=== PATIENT | male | born 1990 | race Caucasian/White ===

== ENCOUNTER 2020-09-15 14:23 | Outpatient (REF) | payer BC, SELFPAY ==
[2020-09-15 16:59] LABS: Alanine Aminotransferase 57 U/L (0-40); Albumin Level 4.8 g/dL (3.5-5.0); Alkaline Phosphatase 56 U/L (39-117); Anion Gap 16 (12-20); Aspartate Amino Transferase 39 U/L (5-37); Bilirubin Total 0.8 mg/dL (0.0-1.0); Blood Urea Nitrogen 13 mg/dL (9-16); Calcium 9.5 mg/dL (8.4-10.2); Carbon Dioxide 24 mmol/L (22-29); Chloride 105 mmol/L (96-108); Cholesterol 252 mg/dL; Estimated Glomerular Filt Rate > 60; Glucose Fasting 67 mg/dL (60-99); HDL Cholesterol 56 mg/dL; LDL Cholesterol Calculated 175 mg/dl; Potassium 4.4 mmol/L (3.3-5.1); Sodium 141 mmol/L (135-145); Triglycerides 106 mg/dL
[2020-09-15 17:12] LABS: TSH reflex Free T4 0.72 uIU/mL (0.32-4.0)
== END 2020-09-15 14:24 | disposition home or self-care (01) ==
LOC: HO.HMGCLDS 14:23
PROVIDERS: PCP Nurse Practitioner Family; Visit Provider Nurse Practitioner Family
DX: Z00.00 Encounter for general adult medical examination without abnormal findings (principal)
CPT/HCPCS: 36415; 80053; 80061; 84443

== ENCOUNTER 2020-09-16 14:34 | Outpatient (REF) | payer BC, SELFPAY ==
[2020-09-19 08:23] LABS: HBc Num1 0.07 S/CO (0.00-0.79); Hepatitis B Core Antibody Nonreactive (Nonreactive); ~HepC Num1 0.09 S/CO (0.00-0.79); ~Hepatitis B Surface Antibody REACTIVE (Nonreactive); ~Hepatitis C Antibody Nonreactive (Nonreactive)
[2020-09-19 08:25] LABS: HBsAGNum1 0.19 S/CO (0.00-0.99); Hepatitis B Surface Antigen Negative (Negative)
[2020-09-21 08:10] LABS: Hepatitis A Antibody IgM 0.18 Index (0-0.79); ~Hepatitis A Antibody IgM Nonreactive (Nonreactive)
== END 2020-09-16 14:35 | disposition home or self-care (01) ==
LOC: HO.HMGCLDS 14:34
PROVIDERS: PCP Nurse Practitioner Family; Visit Provider Nurse Practitioner Family
DX: R74.8 Abnormal levels of other serum enzymes (principal)
CPT/HCPCS: 36415; 86704; 86706; 86709; 86803; 87340

== ENCOUNTER 2020-09-23 08:19 | Outpatient (REF) | payer BC, SELFPAY ==
--- NOTE | ~2020-09-23 | US_ITS ---
EXAMINATION: US ABDOMEN COMPLETE CLINICAL INFORMATION: Elevated liver enzymes. COMPARISON: None TECHNIQUE: Real-time imaging of the abdominal viscera. FINDINGS: PANCREAS: Normal. ABDOMINAL AORTA: The proximal, mid, and distal segments are normal in caliber. INFERIOR VENA CAVA: Visualized portions are normal. LIVER: Normal. The liver is normal in size. The liver contour is normal. Parenchymal echogenicity is normal. No focal hepatic lesion. There is no intrahepatic biliary duct dilatation seen. GALLBLADDER: Normal. The gallbladder is physiologically distended without evidence of stones, sludge, polyps, wall thickening or pericholecystic fluid. COMMON BILE DUCT: Normal in caliber measuring 0.3 cm in diameter. RIGHT KIDNEY: Normal. No hydronephrosis. No renal calculi or focal parenchymal lesions. The kidney measures 10.7 cm in maximum dimension. LEFT KIDNEY: Normal. No hydronephrosis. No renal calculi or focal parenchymal lesions. The kidney measures 11.2 cm in maximum dimension. SPLEEN: Normal. The spleen measures 10.5 cm in maximum dimension. FREE FLUID: None. US/US abdomen complete IMPRESSION: Unremarkable complete abdomen ultrasound.
== END 2020-09-23 08:20 | disposition home or self-care (01) ==
LOC: HO.HMGCX 08:19
PROVIDERS: Visit Provider Nurse Practitioner Family
DX: R74.8 Abnormal levels of other serum enzymes (principal)
CPT/HCPCS: 76700

== ENCOUNTER 2021-09-07 10:19 | Outpatient (REF) | payer BC, SELFPAY ==
[2021-09-07 12:01] LABS: Alanine Aminotransferase 19 U/L (0-40); Albumin Level 4.4 g/dL (3.5-5.0); Alkaline Phosphatase 48 U/L (39-117); Anion Gap 13 (12-20); Aspartate Amino Transferase 15 U/L (5-37); Bilirubin Total 0.7 mg/dL (0.0-1.0); Blood Urea Nitrogen 12 mg/dL (9-16); Carbon Dioxide 27 mmol/L (22-29); Chloride 105 mmol/L (96-108); Cholesterol 220 mg/dL; Estimated Glomerular Filt Rate > 60; Glucose Fasting 83 mg/dL (60-99); HDL Cholesterol 43 mg/dL; LDL Cholesterol Calculated 146 mg/dl; Potassium 4.2 mmol/L (3.3-5.1); Sodium 141 mmol/L (135-145); Total Protein 7.4 g/dL (6.5-8.0); Triglycerides 157 mg/dL
[2021-09-07 12:21] LABS: TSH reflex Free T4 0.96 uIU/mL (0.32-4.0)
[2021-09-07 14:14] LABS: Appearance Urine CLEAR; Color Urine YELLOW; Glucose Urine UA NEG (NEG); Leukocyte Esterase Urine NEG (NEG); Nitrite Urine NEG (NEG); PH 6.5 (5.0-8.0); Urine Blood NEG (NEG); Urine Ketones NEG (NEG); Urine Protein NEG (NEG-TRACE)
== END 2021-09-07 10:20 | disposition home or self-care (01) ==
LOC: HO.HMGCLDS 10:19
PROVIDERS: PCP Nurse Practitioner Family; Visit Provider Nurse Practitioner Family
DX: E78.5 Hyperlipidemia, unspecified (principal); F33.9 Major depressive disorder, recurrent, unspecified; F41.9 Anxiety disorder, unspecified
CPT/HCPCS: 36415; 80053; 80061; 81003; 84443

== ENCOUNTER 2021-11-30 12:40 | Outpatient (REF) | payer BC, SELFPAY ==
[2021-11-30 14:12] LABS: Cholesterol 225 mg/dL; HDL Cholesterol 51 mg/dL; LDL Cholesterol Calculated 147 mg/dl; Triglycerides 139 mg/dL
== END 2021-11-30 12:41 | disposition home or self-care (01) ==
LOC: HO.HMGCLDS 12:40
PROVIDERS: PCP Nurse Practitioner Family; Visit Provider Nurse Practitioner Family
DX: E78.5 Hyperlipidemia, unspecified (principal)
CPT/HCPCS: 36415; 80061

== ENCOUNTER 2022-02-16 12:52 | Outpatient (REF) | payer BC, SELFPAY ==
[2022-02-16 14:44] LABS: Alanine Aminotransferase 24 U/L (0-40); Albumin Level 4.5 g/dL (3.5-5.0); Alkaline Phosphatase 51 U/L (39-117); Anion Gap 14 (12-20); Aspartate Amino Transferase 20 U/L (5-37); Bilirubin Total 1.1 mg/dL (0.0-1.0); Blood Urea Nitrogen 9 mg/dL (9-16); Calcium 9.3 mg/dL (8.4-10.2); Carbon Dioxide 28 mmol/L (22-29); Chloride 105 mmol/L (96-108); Cholesterol 145 mg/dL; Estimated Glomerular Filt Rate > 60; Glucose Fasting 84 mg/dL (60-99); HDL Cholesterol 45 mg/dL; LDL Cholesterol Calculated 77 mg/dl; Potassium 4.3 mmol/L (3.3-5.1); Sodium 143 mmol/L (135-145); Total Protein 7.3 g/dL (6.5-8.0); Triglycerides 115 mg/dL
== END 2022-02-16 12:53 | disposition home or self-care (01) ==
LOC: HO.HMGCLDS 12:52
PROVIDERS: PCP Nurse Practitioner Family; Visit Provider Nurse Practitioner Family
DX: E78.5 Hyperlipidemia, unspecified (principal)
CPT/HCPCS: 36415; 80053; 80061

== ENCOUNTER 2022-11-14 12:32 | Outpatient (REF) | payer BC, SELFPAY ==
[2022-11-14 13:54] LABS: Appearance Urine Clear; Color Urine Yellow; Glucose Urine UA Negative (Negative); Leukocyte Esterase Urine Negative (Negative); Nitrite Urine Negative (Negative); PH 5.5 (5.0-9.0); Specific Gravity - Urine 1.025 (1.005-1.025); Urine Blood Negative (Negative); Urine Ketones Trace mg/dL (Negative); Urine Protein Negative (Neg-Trace)
[2022-11-14 14:23] LABS: MANUAL DIFF FLAG NO
[2022-11-14 14:36] LABS: Basophils Absolute Auto 0.1 X10*3/uL (0.0-0.2); Basophils Percent Auto 1.6 % (0-2); Eosinophils Absolute Auto 0.5 X10*3/uL (0.0-0.4); Eosinophils Percent Auto 6.1 % (0-4); Hematocrit 47.8 % (42.0-52.0); Hemoglobin 15.6 g/dl (14.0-18.0); Imm Gran Abs Auto 0.03 X10*3/uL (0.00-0.03); Imm Gran Pct Auto 0.4 % (0.0-0.4); Lymphocytes Absolute Auto 1.9 X10*3/uL (1.2-4.9); Lymphocytes Percent Auto 25.6 % (20-40); Mean Corpuscular HGB Conc 32.6 g/dl (31.0-36.0); Mean Corpuscular Hemoglobin 30.3 pg (27.0-33.0); Mean Corpuscular Volume 92.8 fL (80.0-98.0); Mean Platelet Volume 9.7 fL (9.4-12.4); Monocytes Absolute Auto 0.7 X10*3/uL (0.1-1.2); Monocytes Percent Auto 8.9 % (2-11); Neutrophils Absolute Auto 4.3 x10*3/uL (2.0-8.3); Neutrophils Percent Auto 57.4 % (45-73); Platelet Count 321 X10*3/uL (160-400); Red Blood Count 5.15 X10*6/uL (4.60-5.80); Red Cell Distribution Width 12.8 % (11.0-16.0); White Blood Count 7.6 X10*3/uL (4.8-10.8)
[2022-11-14 15:01] LABS: Alanine Aminotransferase 22 U/L (0-40); Albumin Level 4.6 g/dL (3.5-5.0); Alkaline Phosphatase 62 U/L (39-117); Anion Gap 13 (12-20); Aspartate Amino Transferase 20 U/L (5-37); Bilirubin Total 1.1 mg/dL (0.0-1.0); Blood Urea Nitrogen 10 mg/dL (9-16); Calcium 9.8 mg/dL (8.4-10.2); Carbon Dioxide 28 mmol/L (22-29); Chloride 108 mmol/L (96-108); Cholesterol 214 mg/dL; Estimated Glomerular Filt Rate > 60; Glucose Fasting 95 mg/dL (60-99); HDL Cholesterol 47 mg/dL; LDL Cholesterol Calculated 124 mg/dl; Sodium 144 mmol/L (135-145); Total Protein 7.8 g/dL (6.5-8.0); Triglycerides 219 mg/dL
[2022-11-14 15:18] LABS: TSH reflex Free T4 1.03 uIU/mL (0.32-4.0)
== END 2022-11-14 12:33 | disposition home or self-care (01) ==
LOC: HO.HMGCLDS 12:32
PROVIDERS: PCP Nurse Practitioner Family; Visit Provider Nurse Practitioner Family
DX: Z00.00 Encounter for general adult medical examination without abnormal findings (principal); G47.00 Insomnia, unspecified; E78.5 Hyperlipidemia, unspecified; F41.9 Anxiety disorder, unspecified
CPT/HCPCS: 36415; 80053; 80061; 81003; 84443; 85025

== ENCOUNTER 2023-04-30 08:04 | Outpatient (AMB) | payer BC, SELFPAY ==
--- NOTE | 2023-04-30 07:21 | A.OFFPC_ITS ---
Intake Visit Reasons: FMLA paperwork Allergies Sulfa (Sulfonamide Antibiotics) Allergy (Unknown, Verified 11/14/22 11:27) rash sulfamethoxazole [From BACTRIM] Allergy (Unknown, Verified 11/14/22 11:27) RASH trimethoprim [From BACTRIM] Allergy (Unknown, Verified 11/14/22 11:27) RASH Tobacco use date assessed: 11/14/22 HPI FMLA paperwork HPI Details Pt was seen in the ER on 04/06 c/o abdominal pain, N/V, and poor intake. CT showed significantly dilated small bowel loops particularly of the jejunal loops seen with normal caliber of distal ileal loops with no transition zone identified. Pt was seen by general surgery who recommended a gastrografin challenge. This was performed with XR showing contrast material in the large colon ruling out obstruction. Pt was able to move his bowels during admission. He was advanced to a low fiber diet. Pt was d/c on 04/08 with recommendation for daily miralax. Pt reports doing well. He is eating well and having bowel movements. Denies fever, chills, abdominal pain, N/V/D, and constipation. [facility] Social History Housing: Apartment Alcohol intake: current Alcohol intake frequency: holidays/special occasions only Patient Tobacco Use Status: Never used Tobacco e-Cigarette/Vaping Use: Currently Using (sometimes ) Second Hand Smoke Exposure: Yes service: No Current occupational status: employed Current occupation: [employer] Current occupational exposures/hazards: No Cognitive needs: No Hearing needs: No Vision needs: No Questionnaire Thrive Questionnaire Date Thrive assessed: 08/31/21 JUSTIN-7 AMB Questionnaire JUSTIN-7 Date JUSTIN - 7 assessed: 08/31/21 Source: Developed by Drs. Isaías Alcala, Radha Bass, Shabbir Vega and colleagues, with an educational henrique from [employer]. Review of Systems Const Reports as per HPI Physical exam (Primary Care) Tobacco/Smoking Status: Tobacco use Status Tobacco use date assessed 11/14/22 04/30/23 07:22 Patient Tobacco Use Status Never used Tobacco 04/30/23 07:22 e-Cigarette/Vaping Use Currently Using (sometimes ) 04/30/23 07:22 Thrive Assessment: Date of Thrive Assessment Date Thrive assessed 08/31/21 04/30/23 07:22 Const General: cooperative Orientation/consciousness: patient oriented x3 Neuro General: patient oriented x3 Psych Appearance: grossly normal Mental Status: mental status grossly normal Speech and movement: Normal speech and movement present Affect: normal affect Attitude: cooperative Thought process: Normal thought process present Thought content: Normal thought content present Insight: Good insight present (Psych) Judgement: Good judgement present (Psych) Telehealth Telehealth Location of provider rendering services: practice address Location of patient: address on file Patient Identification confirmed using: Name, : Yes Telehealth method: video Patient verbally consented to treatment: Yes Patient verbally consented to billing insurance company: Yes Patient informed of any privacy concerns related to visit: Yes Minutes spent on Phone/Video with Pt.: 15 Assessment and Plan Assessment & Plan (1) Abdominal pain: Code(s): R10.9 - Unspecified abdominal pain Plan: pt doing well, labs ordered (2) Ileus: Code(s): K56.7 - Ileus, unspecified Plan The patient agreed to the use of a phlebotomist medical lab assistant for this encounter. Scribed for YUSUF Otoole by Kassandra Weber phlebotomist medical lab assistant, on 04/30/2023 at 07:20 EST. Orders: Orders Comprehensive Met. Panel Today R10.9 - Unspecified abdominal pain Complete Blood Count Auto Diff Today R10.9 - Unspecified abdominal pain Coding Level of Care Code Tele Est Pt Level 3 (31843) Diagnoses Abdominal pain R10.9 Ileus K56.7
== END 2023-04-30 12:47 | disposition home or self-care (01) ==
LOC: HO.HMGC 08:04
PROVIDERS: PCP Nurse Practitioner Family; Visit Provider Nurse Practitioner Family
DX: R10.9 Unspecified abdominal pain (principal); K56.7 Ileus, unspecified
CPT/HCPCS: 99213

== ENCOUNTER 2023-05-27 09:56 | Outpatient (AMB) | payer BC, SELFPAY ==
--- NOTE | 2023-05-27 10:07 | A.OFFPC_ITS ---
Vital Signs 05/27/23 10:09 Height 5 ft 9 in Weight 165 lb BMI 24.4 BP 102/60 Blood Pressure Location Lt brachial Position Sitting Pulse 54 Pulse Source Pulse Oximeter Intake Visit Reasons: 6 Month follow up Intake Note: Pt is here today for his 6mo. f/u Allergies Sulfa (Sulfonamide Antibiotics) Allergy (Unknown, Verified 05/27/23 10:44) rash sulfamethoxazole [From BACTRIM] Allergy (Unknown, Verified 05/27/23 10:44) RASH trimethoprim [From BACTRIM] Allergy (Unknown, Verified 05/27/23 10:44) RASH Medication List - Last Reconciled 05/27/23 by EMILY Hassan-MYRON albuterol sulfate 90 mcg/actuation 2 puffs inhalation Q6H PRN atorvastatin 10 mg PO BEDTIME 30 days tphywsppivs-piajknzik-qziduwbn 100-62.5-25 mcg (Trelegy Ellipta) 1 inh inhalation DAILY montelukast 10 mg PO DAILY trazodone 50 mg PO BEDTIME PRN Tobacco use date assessed: 05/27/23 Dental Screening Dental Screen Date: 05/27/23 Did you have a dental visit in the last 12 months?: Yes Did you have a dental problem in the last 6 months where you did not have access to dental care?: No Was dental information given to patient?: Patient has dentist HPI 6 Month follow up HPI Details Anxiety/depression: Pt is not currently taking medication for this and does not want to. He reports that his symptoms come and go. Refuses a therapist at this time, he will contact me if he changes his mind. Denies any SI and HI. Pt is having an eye procedure in the near future. Pt does not know the name of it and there are no notes on this. Pt is cleared for any same-day procedures. [facility] Social History Housing: Apartment Alcohol intake: current Alcohol intake frequency: holidays/special occasions only Patient Tobacco Use Status: Never used Tobacco e-Cigarette/Vaping Use: Former Use (sometimes ) Second Hand Smoke Exposure: Yes service: No Current occupational status: employed Current occupation: [employer] Current occupational exposures/hazards: No Cognitive needs: No Hearing needs: No Vision needs: No Questionnaire Thrive Questionnaire Date Thrive assessed: 05/27/23 I am a: Patient What is your living situation today?: I have a steady place to live Within the past 12 months, did the food you bought not last and you didn't have the money to get more?: Never true Within the past 12 months, did you worry whether your food would run out before you got money to buy more?: Never true Do you have trouble paying for medicines?: No Do you have trouble getting transportation to medical appointments?: No Do you have trouble paying your heating and electricity bill?: No Do you have trouble taking care of your child, family member or friend?: No Do you have trouble with day-to-day activities such as bathing, preparing meals, shopping, managing finances, etc.?: No Are you currently unemployed and looking for a job?: No Are you interested in more education?: No AUDIT C Alcohol Use Questionnaire (AUDIT-C) 1. How often do you have a drink containing alcohol?: Never Total Score: 0 JUSTIN-7 AMB Questionnaire JUSTIN-7 Date JUSTIN - 7 assessed: 08/31/21 Source: Developed by Drs. Isaías Alcala, Radha Bass, Shabbir Vega and colleagues, with an educational henrique from [employer]. Review of Systems Const Reports as per HPI Physical exam (Primary Care) Vital Signs: Last Vital Signs Pulse 54 05/27/23 10:09 BP 102/60 05/27/23 10:09 BMI result Body Mass Index 24.4 Tobacco/Smoking Status: Tobacco use Status Tobacco use date assessed 05/27/23 05/27/23 10:08 Patient Tobacco Use Status Never used Tobacco 05/27/23 10:08 e-Cigarette/Vaping Use Former Use (sometimes ) 05/27/23 10:14 Thrive Assessment: Date of Thrive Assessment Date Thrive assessed 05/27/23 05/27/23 10:16 Const General: cooperative Orientation/consciousness: patient oriented x3 Neck Neck: Yes no lymphadenopathy Resp Effort & Inspection: normal respiratory effort Auscultation: clear to auscultation bilaterally Cardio Rate: regular rate Rhythm: regular rhythm Heart sounds: S1 normal heart sound present and S2 normal heart sound present Neuro General: patient oriented x3 Psych Appearance: grossly normal Mental Status: mental status grossly normal Speech and movement: Normal speech and movement present Affect: normal affect Attitude: cooperative Thought process: Normal thought process present Thought content: Normal thought content present Insight: Good insight present (Psych) Judgement: Good judgement present (Psych) Assessment and Plan Assessment & Plan (1) Depression, major, recurrent: Code(s): F33.9 - Major depressive disorder, recurrent, unspecified (2) Anxiety: Code(s): F41.9 - Anxiety disorder, unspecified (3) Pre-op evaluation: Code(s): Z01.818 - Encounter for other preprocedural examination Plan The patient agreed to the use of a nurses medical assistants phlebotomists for this encounter. Scribed for YUSUF Otoole by Kassandra Weber nurses medical assistants phlebotomists, on 05/27/2023 at 10:30 EST. Coding Level of Care Code Est Pt Level 3 (89099) Diagnoses Depression, major, recurrent F33.9 Anxiety F41.9 Pre-op evaluation Z01.818
[2023-05-27 10:09] VITALS: BP 102/60; PULSE 54; BMI 24.4
== END 2023-05-27 15:01 | disposition home or self-care (01) ==
PROVIDERS: Visit Provider Nurse Practitioner Family
DX: F33.9 Major depressive disorder, recurrent, unspecified (principal); F41.9 Anxiety disorder, unspecified; Z01.818 Encounter for other preprocedural examination
CPT/HCPCS: 99213

== ENCOUNTER 2023-06-05 11:34 | Day surgery (SDC) | payer BC, SELFPAY ==
[2023-05-31 12:49] VITALS: BMI 24.4
[2023-05-31 12:56] VITALS: BMI 24.4
[2023-06-05] VITALS (7 sets, daily range): BP systolic 114–146; BP diastolic 48–74; PULSE 12–55; RESP 14–16; TEMP 36.3–37; O2SAT 100; BMI 24.4
[2023-06-05] MEDS: Lactated Ringers 1,000 ML 100 ML IVCONT (12:59)
--- NOTE | 2023-06-05 13:40 | P.CONAN_ITS ---
Documented by User: Sonia Herring NP 06/04/23 10:11 HPI - Anesthesia Eval Consult details Narrative: 33yo M for Bilateral Lateral Eye Muscle Recession [facility] Active Problems Active Problems: All Active Problems (Updated 05/31/23 @ 12:55 by Carissa Nolan RN) Pre-op evaluation (Acute) Ileus (Acute) Abdominal pain (Acute) Insomnia (Acute) Lesion of throat (Acute) Blurred vision, right eye (Acute) Depression, major, recurrent (Acute) Anxiety (Acute) Elevated liver enzymes (Acute) Dyslipidemia (Acute) Incomplete defecation (Acute) Chest discomfort (Acute) Hyperhidrosis (Acute) Physical exam (Acute) Past Medical History Medical History Asthma Anxiety Depression Elevated cholesterol Surgical History Surgical History Hx of abdominal surgery Social History Social History Housing: Apartment Are you a primary healthcare corporate account director to a significant other at home: No Do you presently have visiting nurse or other home services: No Alcohol intake: current Alcohol intake frequency: does not drink Patient Tobacco Use Status: Never used Tobacco e-Cigarette/Vaping Use: Former Use (sometimes ) Second Hand Smoke Exposure: Yes Use of substances other than those prescribed or required for medical reasons: Yes Substance Use Frequency: Occasionally Have you been hit, kicked, punched, or otherwise hurt by someone within the past year? If so, by whom?: No Are you DNR?: No Advance Directives: No Advance Directives Information Provided: Yes Advance Directives on File: No Recently lost weight without trying: No Eating poorly because of decreased appetite: No Nutrition Risks: No Nutritional Risk Poor oral hygiene: No service: No Current occupational status: employed Current occupation: [employer] Current occupational exposures/hazards: No Cognitive needs: No Hearing needs: No Vision needs: No Meds Allergies Allergy/AdvReac Type Severity Reaction Status Date / Time Sulfa (Sulfonamide Allergy Unknown rash Verified 05/27/23 10:44 Antibiotics) sulfamethoxazole Allergy Unknown RASH Verified 05/27/23 10:44 [From BACTRIM] trimethoprim [From BACTRIM] Allergy Unknown RASH Verified 05/27/23 10:44 Home Medications Medication Instructions Recorded Confirmed Last Taken Type albuterol sulfate 90 mcg/actuation 2 puff inhalation Q6H PRN Wheezing 09/14/20 05/31/23 Unknown History aerosol inhaler Exam Height,Weight and Vital Signs: Height 5 ft 9 in Weight 74.843 kg Assessment and Plan Assessment Anesthesia Assessment: Chart Reviewed Documented by User: Hoa Boston, 06/05/23 13:43 [facility] Past Medical History Medical History Asthma Anxiety Depression Elevated cholesterol Family History Family history of problems with anesthesia: No Surgical History Surgical History Hx of abdominal surgery History of Problems with Anesthesia: No Social History Social History Housing: Apartment Are you a primary healthcare corporate account director to a significant other at home: No Do you presently have visiting nurse or other home services: No Alcohol intake: current Alcohol intake frequency: does not drink Patient Tobacco Use Status: Never used Tobacco e-Cigarette/Vaping Use: Former Use (sometimes ) Second Hand Smoke Exposure: Yes Use of substances other than those prescribed or required for medical reasons: Yes Substance Use Frequency: Occasionally Have you been hit, kicked, punched, or otherwise hurt by someone within the past year? If so, by whom?: No Are you DNR?: No Advance Directives: No Advance Directives Information Provided: Yes Advance Directives on File: No Recently lost weight without trying: No Eating poorly because of decreased appetite: No Nutrition Risks: No Nutritional Risk Poor oral hygiene: No service: No Current occupational status: employed Current occupation: [employer] Current occupational exposures/hazards: No Cognitive needs: No Hearing needs: No Vision needs: No Meds Allergies Allergy/AdvReac Type Severity Reaction Status Date / Time Sulfa (Sulfonamide Allergy Unknown rash Verified 05/27/23 10:44 Antibiotics) sulfamethoxazole Allergy Unknown RASH Verified 05/27/23 10:44 [From BACTRIM] trimethoprim [From BACTRIM] Allergy Unknown RASH Verified 05/27/23 10:44 Home Medications Medication Instructions Recorded Confirmed Last Taken Type albuterol sulfate 90 mcg/actuation 2 puff inhalation Q6H PRN Wheezing 09/14/20 05/31/23 Unknown History aerosol inhaler Exam Exam Date and Time: June 05, 2023 1340 Height,Weight and Vital Signs: Height 5 ft 9 in Weight 74.843 kg Vital Signs Temperature 98.6 F 06/05/23 12:55 Pulse Rate 55 06/05/23 12:55 Respiratory Rate 16 06/05/23 12:55 Blood Pressure 135/74 06/05/23 12:55 Pulse Oximetry 100 06/05/23 12:55 Oxygen Delivery Method Room Air 06/05/23 12:55 Temperature 98.6 F 06/05/23 12:55 Pulse Rate 55 06/05/23 12:55 Respiratory Rate 16 06/05/23 12:55 Blood Pressure 135/74 06/05/23 12:55 Pulse Oximetry 100 06/05/23 12:55 Oxygen Delivery Method Room Air 06/05/23 12:55 Airway Mallampati Class: I TM Dist: >3cm Neck ROM: Full Loose/Missing/Broken Teeth: No Heart: S1S2 Lungs: CTAB Assessment and Plan Assessment Anesthesia Assessment: Anesthesia Plan Discussed and Chart Reviewed Final Anesthetic Review Family History of Problems with Anesthesia: No History of Problems with Anesthesia: No NPO: Yes ASA Class: II Final Preanesthetic Review: No Changes in Pt Med Stat, Meds/Allgs Chart Reviewed , Consent Obtained/Reviewed and Anes Risks/Benef Reviewed Patient Risk: Low Procedure Risk: Low Anesthetic Plan Anesthetic Plan: GA and Agree w/ Assess. and Plan Disposition: Standard PACU
--- NOTE | 2023-06-05 14:44 | P.OPHTHAL_ITS ---
Ophthalmology Operative Note Date of Service: 06/05/23 Narrative: Diagnosis esotropia. Procedure bilateral medial rectus recessions of [address] Damon. Anesthesia general. Complications none. The patient was brought to the operative room placed under general anesthesia. The eyes were prepped and draped in the usual sterile ophthalmic fashion. Lid specula was placed in the right eye and incisions made at bare sclera in the inferonasal fornix. The medial rectus muscle was hooked and secured with a double-armed Vicryl suture. The muscle was disinserted from the globe and reattached to a position 4 mm behind the original insertion using a hang back technique. Conj unctiva was closed with interrupted Vicryl sutures. An identical procedure was then performed on the left eye. The patient was then awoken from general anesthesia and discharged to postoperative recovery in good condition.
== END 2023-06-05 15:46 | disposition home or self-care (01) ==
PROVIDERS: PCP Nurse Practitioner Family; Visit Provider Ophthalmology
PROC: (CPT 67311; principal; 2023-06-05 13:40)
DX: H50.32 Intermittent alternating esotropia (principal); F33.9 Major depressive disorder, recurrent, unspecified; J45.909 Unspecified asthma, uncomplicated; E78.00 Pure hypercholesterolemia, unspecified; F41.8 Other specified anxiety disorders; Z79.51 Long term (current) use of inhaled steroids; Z79.899 Other long term (current) drug therapy; Z88.2 Allergy status to sulfonamides; Z88.1 Allergy status to other antibiotic agents; Z77.22 Contact with and (suspected) exposure to environmental tobacco smoke (acute) (chronic)
CPT/HCPCS: 67311; C1713; J0131; J1100; J1885; J2250; J2405; J2704; J3010

== ENCOUNTER 2023-11-21 11:07 | Outpatient (AMB) | payer BC, SELFPAY ==
--- NOTE | 2023-11-21 11:10 | MHC.PC.OV ---
Vital Signs 11/21/23 11:11 Height 5 ft 9 in Weight 168 lb BMI 24.8 BP 122/76 Blood Pressure Location Rt brachial Position Sitting Pulse 60 Pulse Source Pulse Oximeter Pulse Oximetry (%) 98 Intake Visit Reasons: Physical exam Intake Note: pt is here for physical exam Freight Broker Agent Required: No Allergies Sulfa (Sulfonamide Antibiotics) Allergy (Unknown, Verified 11/21/23 11:19) rash sulfamethoxazole [From BACTRIM] Allergy (Unknown, Verified 11/21/23 11:19) RASH trimethoprim [From BACTRIM] Allergy (Unknown, Verified 11/21/23 11:19) RASH Medication List - Last Reconciled 11/21/23 by EMILY Fox albuterol sulfate 90 mcg/actuation 2 puffs inhalation Q6H PRN [id number]-[id number]-[id number] 100-62.5-25 mcg (Trelegy Ellipta) 1 inh inhalation DAILY montelukast 10 mg PO DAILY trazodone 50 mg PO BEDTIME PRN Tobacco use date assessed: 11/21/23 Dental Screening Dental Screen Date: 11/21/23 Did you have a dental visit in the last 12 months?: Yes Did you have a dental problem in the last 6 months where you did not have access to dental care?: No Was dental information given to patient?: Patient has dentist HPI HPI Comments History of Present Illness Details Patient is a 33-year-old male in today for physical exam Patient is due for tetanus booster today, will offer. Patient will get at local pharmacy. He has a past medical history significant for: Anxiety-patient declines medication and therapy at this time. Dyslipidemia-patient discontinue atorvastatin. Will draw fasting labs today. Insomnia-controlled with trazodone 50 mg p.o. bedtime. Asthma-controlled with trilogy inhaler and albuterol inhaler. Patient utilizes albuterol 1-2 times per month. [facility] Medical History (Updated 11/21/23 @ 11:49 by EMILY Fox) Asthma Anxiety Depression Elevated cholesterol Surgical History Hx of abdominal surgery Social History Housing: Apartment Are you a primary day care supervisor to a significant other at home: No Do you presently have visiting nurse or other home services: No Alcohol intake: current Alcohol intake frequency: does not drink Patient Tobacco Use Status: Never used Tobacco e-Cigarette/Vaping Use: Former Use (sometimes ) Second Hand Smoke Exposure: Yes service: No Current occupational status: unemployed Current occupational exposures/hazards: No Cognitive needs: No Hearing needs: No Vision needs: No Questionnaire Thrive Questionnaire Date Thrive assessed: 05/27/23 I am a: Patient What is your living situation today?: I have a steady place to live Within the past 12 months, did the food you bought not last and you didn't have the money to get more?: Never true Within the past 12 months, did you worry whether your food would run out before you got money to buy more?: Never true Please select the resources that you would like help with: Utilities, Job search/training and Education THRIVE Score: 0 AUDIT C Alcohol Use Questionnaire (AUDIT-C) 1. How often do you have a drink containing alcohol?: 2-3 times a week 2. How many drinks containing alcohol do you have on a typical day when you are drinking?: 5 or 6 3. How often do you have six or more drinks on one occasion?: Monthly Total Score: 7 Score Reviewed/Action Taken: Yes JUSTIN-7 AMB Questionnaire JUSTIN-7 Date JUSTIN - 7 assessed: 08/31/21 Feeling nervous, anxious, or on edge: 1 = Several days Not being able to stop or control worryin = Several days Worrying too much about different things: 1 = Several days Trouble relaxin = Several days Being so restless that it is hard to sit still: 0 = Not at all Becoming easily annoyed or irritable: 2 = More than half the days Feeling afraid as if something awful might happen: 3 = Nearly every day Total JUSTIN-7 score (0-4 normal; 5-9 mild; 10-14 moderate; 15-21 severe): 9 Source: Developed by Drs. Isaías Alcala, Radha Bass, Shabbir Vega and colleagues, with an educational henrique from [employer] JUSTIN-7 Assessment Billing JUSTIN-7 Assessment Tool: JUSTIN-7 Assessment 76643 Review of Systems Const All systems reviewed & are unremarkable except as noted in HPI and below GI Reports constipation Physical exam (Primary Care) BMI result Body Mass Index 24.8 Tobacco/Smoking Status: Tobacco use Status Tobacco use date assessed 05/27/23 05/27/23 10:08 Patient Tobacco Use Status Never used Tobacco 06/05/23 15:00 e-Cigarette/Vaping Use Former Use 05/27/23 10:14 Thrive Assessment: Date of Thrive Assessment Date Thrive assessed 05/27/23 05/27/23 10:16 Const General: cooperative and no acute distress Orientation/consciousness: patient oriented x3 Limitations: no limitations HENMT Head: Yes normal to inspection, Yes normocephalic and Yes atraumatic Ears: TM's normal bilaterally General nose exam: Normal external nose present Mouth: Normal oral and palatal mucosa present Eyes Pupils: Equal, round and reactive pupils present EOM: EOMs intact bilaterally Direct Ophthalmoscopy: normal light reflex and no photophobia Neck Neck: Yes normal visual inspection, Yes full ROM and Yes no lymphadenopathy Thyroid: Thyroid normal Carotids: normal carotid upstroke Lymphatic: no lymphadenopathy noted Chest Chest palpation & inspection: normal inspection of the chest Resp Auscultation: clear to auscultation bilaterally Cardio Rate: regular rate Rhythm: regular rhythm Heart sounds: S1 normal heart sound present and S2 normal heart sound present Peripheral pulses: Peripheral pulses 2+ throughout GI Inspection: Yes normal to inspection Percussion: Yes normal to percussion Auscultation: normal bowel sounds Rectal Exam - Male: Yes deferred General: Yes no CVA tenderness Back/Spine/Pelvis Back: no CVA tenderness Cervical Spine: normal cervical lordosis and cervical ROM normal Thoracic/Lumbar Spine: paraspinal muscle tenderness Skin General skin exam: no rashes or lesions noted Neuro General: patient oriented x3 Cranial nerves: Yes Equal, round and reactive pupils present Gait exam (Neuro): Normal gait present Motor exam (neuro): 5/5 motor strength present throughout Psych Thought process: Normal thought process present Thought content: Normal thought content present, suicidality and no homicidality Insight: Good insight present (Psych) Judgement: Good judgement present (Psych) Assessment and Plan Assessment & Plan (1) Physical exam: Comment: Will draw full panel fasting labs. Code(s): Z00.00 - Encounter for general adult medical examination without abnormal findings (2) Lumbar pain: Comment: Will order lumbar x-ray, will refer to physical therapy. Code(s): M54.50 - Low back pain, unspecified (3) Anxiety: Comment: Patient feels this is controlled at the moment. Denies SI/HI. Patient does not want medication to therapy at this time Code(s): F41.9 - Anxiety disorder, unspecified (4) Constipation: Comment: Patient reports constipation with what he describes as a feeling of leakage which causes a uncomfortable/burning sensation. Patient states he had GI workup about 5 years prior. Will refer to GI. No history of colonoscopy. Code(s): K59.00 - Constipation, unspecified Qualifiers: Constipation type: unspecified constipation type Qualified Code(s): K59.00 - Constipation, unspecified Plan: Draw labs Plan Follow-up in 6 months Coding Level of Care Code Est Pt Prev Care 18-39y(19764) Diagnoses Physical exam Z00.00 Lumbar pain M54.50 Anxiety F41.9 Constipation, unspecified constipation type K59.00 Constipation type: unspecified constipation type Additional Codes JUSTIN-7 Assessment Billing - JUSTIN-7 Assessment Tool: JUSTIN-7 Assessment 58250 ([id number]) Time Spent (min) 32
[2023-11-21 11:11] VITALS: BP 122/76; PULSE 60; O2SAT 98; BMI 24.8
== END 2023-11-21 14:54 | disposition home or self-care (01) ==
PROVIDERS: Visit Provider Nurse Practitioner Primary Care
DX: Z00.00 Encounter for general adult medical examination without abnormal findings (principal); M54.50 Low back pain, unspecified; F41.9 Anxiety disorder, unspecified; K59.00 Constipation, unspecified
CPT/HCPCS: 99395

== ENCOUNTER 2023-11-21 11:35 | Outpatient (REF) | payer BC, SELFPAY ==
--- NOTE | ~2023-11-21 | XR_ITS ---
EXAMINATION: XR LUMBOSACRAL SPINE CLINICAL INFORMATION: Low back pain COMPARISON: None available. TECHNIQUE: Three views of the lumbosacral spine. FINDINGS: Mild dextroscoliosis of the lumbar spine. Facet arthritis in the lower lumbar spine. Mild multilevel lumbar spondylosis. Bilateral sacroiliac joints are maintained. XR/XR lumbar spine 2-3V IMPRESSION: Mild multilevel lumbar spondylosis.
[2023-11-21 13:20] LABS: Appearance Urine Turbid; Color Urine Yellow; Glucose Urine UA Negative (Negative); Leukocyte Esterase Urine Negative (Negative); Nitrite Urine Negative (Negative); PH 5.5 (5.0-9.0); Specific Gravity - Urine 1.025 (1.005-1.025); Urine Blood Negative (Negative); Urine Ketones Negative (Negative); Urine Protein Trace mg/dL (Neg-Trace)
[2023-11-21 13:34] LABS: MANUAL DIFF FLAG NO
[2023-11-21 13:41] LABS: Basophils Absolute Auto 0.1 X10*3/uL (0.0-0.2); Basophils Percent Auto 1.2 % (0-2); Eosinophils Absolute Auto 0.2 X10*3/uL (0.0-0.4); Eosinophils Percent Auto 3.6 % (0-4); Hematocrit 44.3 % (42.0-52.0); Hemoglobin 14.8 g/dl (14.0-18.0); Imm Gran Abs Auto 0.02 X10*3/uL (0.00-0.03); Imm Gran Pct Auto 0.4 % (0.0-0.4); Lymphocytes Absolute Auto 1.5 X10*3/uL (1.2-4.9); Mean Corpuscular HGB Conc 33.4 g/dl (31.0-36.0); Mean Corpuscular Hemoglobin 30.5 pg (27.0-33.0); Mean Corpuscular Volume 91.2 fL (80.0-98.0); Mean Platelet Volume 9.7 fL (9.4-12.4); Monocytes Absolute Auto 0.5 X10*3/uL (0.1-1.2); Monocytes Percent Auto 8.9 % (2-11); Neutrophils Absolute Auto 2.8 x10*3/uL (2.0-8.3); Neutrophils Percent Auto 55.9 % (45-73); Platelet Count 295 X10*3/uL (160-400); Red Blood Count 4.86 X10*6/uL (4.60-5.80); Red Cell Distribution Width 12.5 % (11.0-16.0); White Blood Count 5.1 X10*3/uL (4.8-10.8)
[2023-11-21 14:31] LABS: Alanine Aminotransferase 27 U/L (0-40); Albumin Level 4.6 g/dL (3.5-5.0); Alkaline Phosphatase 51 U/L (39-117); Anion Gap 14 (12-20); Aspartate Amino Transferase 67 U/L (5-37); Bilirubin Total 0.8 mg/dL (0.0-1.0); Blood Urea Nitrogen 11 mg/dL (9-16); Calcium 9.6 mg/dL (8.4-10.2); Carbon Dioxide 25 mmol/L (22-29); Chloride 106 mmol/L (96-108); Cholesterol 206 mg/dL (<200); Estimated Glomerular Filt Rate > 60; Glucose Random 85 mg/dL (60-115); HDL Cholesterol 50 mg/dL (>40); LDL Cholesterol Calculated 125 mg/dL (<100); Potassium 3.9 mmol/L (3.3-5.1); Sodium 141 mmol/L (135-145); Total Protein 7.6 g/dL (6.5-8.0); Triglycerides 155 mg/dL (<150)
[2023-11-21 14:36] LABS: TSH reflex Free T4 0.56 uIU/mL (0.32-4.0)
[2023-11-26 06:04] LABS: Vitamin B6 45.8 ng/mL (2.1-21.7)
[2023-11-26 13:58] LABS: Vitamin D 25-OH, D2 <4 ng/mL; Vitamin D 25-OH, D3 21 ng/mL; Vitamin D 25-OH, Total 21 ng/mL (30-100)
== END 2023-11-21 11:36 | disposition home or self-care (01) ==
LOC: HO.HMGCX 11:35
PROVIDERS: PCP Nurse Practitioner Family; Visit Provider Nurse Practitioner Primary Care
DX: M54.50 Low back pain, unspecified (principal); Z91.89 Other specified personal risk factors, not elsewhere classified; Z13.89 Encounter for screening for other disorder; Z13.21 Encounter for screening for nutritional disorder; Z13.29 Encounter for screening for other suspected endocrine disorder; Z13.0 Encounter for screening for diseases of the blood and blood-forming organs and certain disorders involving the immune mechanism; Z13.220 Encounter for screening for lipoid disorders
CPT/HCPCS: 36415; 72100; 80053; 80061; 81003; 82306; 84207; 84443; 85025

== ENCOUNTER 2024-01-08 12:48 | Outpatient (RCR) | payer BC, SELFPAY ==
--- NOTE | 2024-01-08 14:29 | MHC.PT.EP ---
[facility] [place] [facility] [place] [facility] [place] Office [address] [place] [address] [phone] F: [phone] F: [phone] F: [phone] F: [phone] Physical Therapy Plan of Care Date of Evaluation: 01/08/24 Date of Surgery: Diagnosis: low back pain Assessment: Patient is a 33 year old R handed male who presents with s/s consistent with low back pain. He is currently between jobs but does enjoy being active and wants to be more active at his next job. Patient past medical history includes asthma. Current impairments include pain, posture, ROM, strength, activity tolerance and functional mobility. Functional limitations include decreased ability to stand, bend, lift, push, walk, sit, pull, and exercise. Patient is motivated with good rehab potential. Skilled PT will address impairments and functional limitations in order to achieve goals. Frequency and Duration: The patient will be seen 2x/week for 5 weeks Short Term Goals: I with HEP - 2 weeks AROM rotation 75% and pain free - 3 weeks TTP absent in lumbar spine and L piriformis - 3 weeks [facility] Goals: AROM rotation and ext 100% and pain free - 5 weeks Demo proper sitting and bending mechanics in clinic - 5 weeks Max pain with sitting/walking, daily activities - /10 - 5 weeks Oswestry 12% or better - 5 weeks Treatment Plan: Modalities to reduce pain, spasms and effusion. Manual therapy to restore motion and function. Therapeutic exercise to improve strength and flexibility. Neuromuscular re-education for posture and balance. Therapeutic activities to return to functional activities of daily living. Electronically signed by: Edwin Nichols, PT Please sign and return to therapist. Thank you for your referral.
--- NOTE | 2024-04-24 06:43 | MHC.PT.DC ---
[facility] [place] [facility] [place] Office [place] Office [address] [place] 140 [facility] [phone] F: [phone] F: [phone] F: [phone] F: [phone] Physical Therapy Discharge Report Diagnosis: low back pain Date of Surgery: Date of Evaluation: 01/08/24 Date of Discharge: 01/25/24 Treatments to Date: 1 Cancellations to Date: No Shows to Date: Discharge Status: Patient Elected to Stop Discharge Summary: Patient is a 33 year old R handed male who presents with s/s consistent with low back pain. He is currently between jobs but does enjoy being active and wants to be more active at his next job. Patient past medical history includes asthma. Current impairments include pain, posture, ROM, strength, activity tolerance and functional mobility. Functional limitations include decreased ability to stand, bend, lift, push, walk, sit, pull, and exercise. Patient is motivated with good rehab potential. Skilled PT will address impairments and functional limitations in order to achieve goals. Electronically signed by: Edwin Nichols, PT Please sign and return to therapist. Thank you for your referral.
--- NOTE | 2024-04-27 14:02 | MHC.PT.DC ---
[facility] [place] Office [place] Office [place] Office [address] [place] 140 [facility] [phone] F: [phone] F: [phone] F: [phone] F: [phone] Physical Therapy Discharge Report Diagnosis: low back pain Date of Surgery: Date of Evaluation: 01/08/24 Date of Discharge: 01/25/24 Treatments to Date: 1 Cancellations to Date: No Shows to Date: Discharge Status: Patient Elected to Stop Discharge Summary: Patient is a 33 year old R handed male who presents with s/s consistent with low back pain. He is currently between jobs but does enjoy being active and wants to be more active at his next job. Patient past medical history includes asthma. Current impairments include pain, posture, ROM, strength, activity tolerance and functional mobility. Functional limitations include decreased ability to stand, bend, lift, push, walk, sit, pull, and exercise. Patient is motivated with good rehab potential. Skilled PT will address impairments and functional limitations in order to achieve goals. Electronically signed by: Edwin Nichols, PT Please sign and return to therapist. Thank you for your referral.
== END 2024-04-24 06:43 | disposition home or self-care (01) ==
LOC: HO.PTCHIC 12:48
PROVIDERS: PCP Nurse Practitioner Family; Visit Provider Nurse Practitioner Primary Care
DX: M54.50 Low back pain, unspecified (principal)
CPT/HCPCS: 97110; 97161; 97535

== ENCOUNTER 2024-03-11 11:16 | Outpatient (REF) | payer BC, SELFPAY ==
[2024-03-14 16:18] LABS: TS Negative Control Passed; TS Panel A 2; TS Panel B 4; TS Positive Control Passed; TSpotTB Negative (Negative)
== END 2024-03-11 11:17 | disposition home or self-care (01) ==
LOC: HO.HMGCLDS 11:16
PROVIDERS: PCP Nurse Practitioner Family; Visit Provider Nurse Practitioner Family
DX: Z11.1 Encounter for screening for respiratory tuberculosis (principal)
CPT/HCPCS: 36415; 86481

== ENCOUNTER 2024-12-22 09:19 | Outpatient (AMB) | payer OTHER, SELFPAY ==
[2024-12-22 09:23] VITALS: BP 112/80; PULSE 60; O2SAT 98; BMI 27.6
--- NOTE | 2024-12-22 09:23 | A.OFFPC_ITS ---
Vital Signs 12/22/24 09:23 Height 5 ft 9 in Weight 187 lb BMI 27.6 BP 112/80 Blood Pressure Location Lt brachial Position Sitting Pulse 60 Pulse Source Pulse Oximeter Pulse Oximetry (%) 98 Oxygen Delivery Method Room Air Intake Visit Reasons: PE Force Adjustment Supervisor Required: No Accompanied by: Self / Same As Patient Allergies Sulfa (Sulfonamide Antibiotics) Allergy (Unknown, Verified 12/22/24 09:54) rash Medication List - Last [facility]conc[facility] al[facility]er[facility] sulfate 90 mcg/actuation 2 puffs inhalation Q6H PRN [id number]-hgwvksfhv-[id number] 100-62.5-25 mcg (Trelegy Ellipta) 1 inh inhalation DAILY montelukast 10 mg PO DAILY trazodone 50 mg PO BEDTIME PRN Tobacco use date assessed: 12/22/24 Dental Screening Dental Screen Date: 12/22/24 Did you have a dental visit in the last 12 months?: Yes Did you have a dental problem in the last 6 months where you did not have access to dental care?: No Was dental information given to patient?: Patient has dentist HPI PE HPI Details History of Present Illness The patient is a 34-year-old male presenting with a request for a physical exam and to discuss his overall health status. He reports a history of depression, which was confirmed by a positive depression screen. He denies any suicidal or homicidal ideation and has expressed that he does not wish to see a therapist or psychiatrist at this time. The patient also has a history of asthma, which he reports is well-controlled. He is aware of the need to contact the healthcare provider if there are any changes in his asthma condition. Health Maintenance Social History - Employment: Recently started a new job , which has positively impacted his mood. Review of Systems - General: Denies fever, chills. - Respiratory: Denies dyspnea. - Cardiovascular: Denies chest pain. - Gastrointestinal: Denies abdominal halina n, blood in stool, constipation, diarrhea. - Psychiatric: Reports depression; denie s anxiety, suicidal ideation, homicidal ideation. Physical Exam General: Cooperative, healthy appearing, comfortable, no acute distress and well developed Orientation: Patient oriented x3 Limitations: No limitations Head: Normal to inspection Ears: Hearing grossly normal bilaterally Nose: Normal external nose present Face and sinus: Normal facial exam Eyes: Appearance normal, both eyes and all related structures Neck: Normal visual inspection and Yes full ROM Respiratory: Normal respiratory effort and able to speak in complete sentences. Clear to auscultation bilaterally Cardiovascular: Regular rate and rhythm. Normal S1 and S2 GI: Normal to inspection. Soft to palpation and nontender : testicles without masses/lesions and no hernias appreciated Skin: No rashes or lesions noted Neuro: Patient oriented x3 Extremities: Normal to inspection Results Plan The patient will continue to monitor his depression symptoms and is aware of the option to seek mental health support if needed. He will also continue to manage his asthma and is advised to contact the healthcare provider if there are any changes in his condition. [facility] Medical History Asthma Anxiety Depression Elevated cholesterol Surgical History Hx of abdominal surgery Social History Housing: Apartment Are you a primary medicare interviewer to a significant other at home: No Do you presently have visiting nurse or other home services: No Alcohol intake: current Alcohol intake frequency: does not drink Patient Tobacco Use Status: Never used Tobacco e-Cigarette/Vaping Use: Former Use (sometimes ) Second Hand Smoke Exposure: Yes service: No Current occupational status: unemployed Current occupational exposures/hazards: No Cognitive needs: No Hearing needs: No Vision needs: No Questionnaire PHQ-9 Over the last 2 weeks, how often have you been bothered by any of the following problems? 1. Little interest or pleasure in doing things: several days 2. Feeling down, depressed, or hopeless: several days 3. Trouble falling or staying asleep, or sleeping too much: more than half the days 4. Feeling tired or having little energy: nearly every day 5. Poor appetite or overeating: several days 6. Feeling bad about yourself - or that you are a failure or have let yourself or your family down: more than half the days 7. Trouble concentrating on things, such as reading the newspaper or watching television: several days 8. Moving or speaking so slowly that other people could have noticed. Or the opposite - being so fidgety or restless that you have been moving around a lot more than usual: not at all 9. Thoughts that you would be better off or of hurting yourself in some way: several days Total score: 12 Depression Screening Interpretation: Positive (denies any si or hi) Depression Screening Follow-up: Existing condition and Declines treatment Depression Screening Done: Yes 60694 - PHQ-9 Billing: Yes Source: Developed by Drs. Isaías Alcala, Radha Bass, Shabbir Vega and colleagues, with an educational henrique from [employer]. Thrive Questionnaire Date Thrive assessed: 12/22/24 I am a: Patient What is your living situation today?: I have a place to live, but I am worried about losing it in the future Within the past 12 months, did the food you bought not last and you didn't have the money to get more?: Sometimes True Within the past 12 months, did you worry whether your food would run out before you got money to buy more?: Never true Do you have trouble paying for medicines?: Yes Do you have trouble getting transportation to medical appointments?: No Do you have trouble paying your heating and electricity bill?: No Do you have trouble taking care of your child, family member or friend?: No Do you have trouble with day-to-day activities such as bathing, preparing meals, shopping, managing finances, etc.?: No Are you currently unemployed and looking for a job?: No Are you interested in more education?: Yes Please select the resources that you would like help with: Paying for medicine and Utilities Currently or been in a relationship where the following occur: No concerns reported THRIVE Score: 2 AUDIT C Alcohol Use Questionnaire (AUDIT-C) 1. How often do you have a drink containing alcohol?: 2-4 times a month 2. How many drinks containing alcohol do you have on a typical day when you are drinking?: 5 or 6 3. How often do you have six or more drinks on one occasion?: Monthly Total Score: 6 Score Reviewed/Action Taken: Yes JUSTIN-7 AMB Questionnaire JUSTIN-7 Date JUSTIN - 7 assessed: 12/22/24 Feeling nervous, anxious, or on edge: 1 = Several days Not being able to stop or control worryin = Nearly every day Worrying too much about different things: 3 = Nearly every day Trouble relaxin = Nearly every day Being so restless that it is hard to sit still: 0 = Not at all Becoming easily annoyed or irritable: 1 = Several days Feeling afraid as if something awful might happen: 3 = Nearly every day Total JUSTIN-7 score (0-4 normal; 5-9 mild; 10-14 moderate; 15-21 severe): 14 Source: Developed by Drs. Isaías Alcala, Radha Bass, Shabbir Vega and colleagues, with an educational henrique from [employer]. JUSTIN-7 Assessment Billing JUSTIN-7 Assessment Tool: JUSTIN-7 Assessment 97732 (denies any si or hi, declined treatment) Physical exam (Primary Care) Vital Signs: Last Vital Signs Pulse 60 12/22/24 09:23 BP 112/80 12/22/24 09:23 Pulse Ox 98 12/22/24 09:23 Oxygen Delivery Method Room Air 12/22/24 09:23 BMI result Body Mass Index 27.6 Tobacco/Smoking Status: Tobacco use Status Tobacco use date assessed 12/22/24 12/22/24 09:24 Patient Tobacco Use Status Never used Tobacco 12/22/24 09:24 e-Cigarette/Vaping Use Former Use (sometimes ) 12/22/24 09:24 PHQ-9: PHQ-9 Score PHQ-9: Total score 12 12/22/24 09:24 Depression Screening Interpretation: Positive (denies any si or hi) Depression Screening Follow-up: Existing condition and Declines treatment Thrive Assessment: Date of Thrive Assessment Date Thrive assessed 12/22/24 12/22/24 09:24 Currently or been in a relationship where the following occur: No concerns reported Coding Level of Care Code Est Pt Prev Care 18-39y(98866) Diagnoses Physical exam Z00.00 Additional Codes PHQ-9 - 21046 - PHQ-9 Billing: Yes ([id number]) JUSTIN-7 Assessment Billing - JUSTIN-7 Assessment Tool: JUSTIN-7 Assessment 88917 ([id number]) Assessment & Plan Assessment & Plan (1) Physical exam: Comment: Will draw full panel fasting labs. Code(s): Z00.00 - Encounter for general adult medical examination without abnormal findings Category: Medical Plan . Orders: Orders UA CC w/rflx Micro + Cult Today Z00.00 - Encounter for general adult medical examination without abnormal findings Lipid Panel Today Z00.00 - Encounter for general adult medical examination without abnormal findings Complete Blood Count Auto Diff Today Z00.00 - Encounter for general adult medical examination without abnormal findings Comprehensive [place]. Panel Fast Today Z00.00 - Encounter for general adult medical examination without abnormal findings TSH reflex Free T4 Today Z00.00 - Encounter for general adult medical examination without abnormal findings
== END 2024-12-22 10:00 | disposition home or self-care (01) ==
LOC: HO.HMCC 09:20
PROVIDERS: PCP Nurse Practitioner Family; Visit Provider Nurse Practitioner Family
DX: Z00.00 Encounter for general adult medical examination without abnormal findings (principal)

== ENCOUNTER → 2024-12-22 09:19 | Outpatient (BNVA) | payer OTHER, SELFPAY | PROVIDERS: PCP Nurse Practitioner Family; Visit Provider Nurse Practitioner Family | DX: Z00.00 Encounter for general adult medical examination without abnormal findings (principal); F32.A Depression, unspecified | CPT/HCPCS: 96127; 99395 ==

== ENCOUNTER 2024-12-24 08:07 | Outpatient (REF) | payer OTHER, SELFPAY ==
[2024-12-24 10:06] LABS: MANUAL DIFF FLAG NO
[2024-12-24 10:15] LABS: Hematocrit 42.9 % (42.0-52.0); Hemoglobin 14.6 g/dl (14.0-18.0); Imm Gran Abs Auto 0.02 X10*3/uL (0.00-0.03); Imm Gran Pct Auto 0.3 % (0.0-0.4); Lymphocytes Absolute Auto 2.4 X10*3/uL (1.2-4.9); Mean Corpuscular HGB Conc 34.0 g/dl (31.0-36.0); Mean Corpuscular Hemoglobin 29.9 pg (27.0-33.0); Mean Corpuscular Volume 87.7 fL (80.0-98.0); NRBC Abs Auto 0.000 X10*3/uL (0.0-0.012); NRBC Pct Auto 0.0 /100WBC (0.0-0.2); Platelet Count 272 X10*3/uL (160-400); Red Blood Count 4.89 X10*6/uL (4.60-5.80); White Blood Count 7.8 X10*3/uL (4.8-10.8)
[2024-12-24 10:19] LABS: Appearance Urine Turbid; Glucose Urine UA Negative (Negative); PH 5.5 (5.0-9.0); Specific Gravity - Urine >= 1.030 (1.005-1.025)
[2024-12-24 10:42] LABS: Alanine Aminotransferase 29 U/L (0-40); Albumin Level 4.7 g/dL (3.5-5.0); Alkaline Phosphatase 54 U/L (39-117); Anion Gap 10 (12-20); Aspartate Amino Transferase 31 U/L (5-37); Blood Urea Nitrogen 13 mg/dL (9-16); Calcium 9.1 mg/dL (8.4-10.2); Carbon Dioxide 26 mmol/L (22-29); Chloride 108 mmol/L (96-108); Cholesterol 178 mg/dL (<200); Estimated Glomerular Filt Rate > 60; HDL Cholesterol 34 mg/dL (>40); Potassium 3.8 mmol/L (3.3-5.1); Sodium 140 mmol/L (135-145); Total Protein 7.4 g/dL (6.5-8.0); Triglycerides 287 mg/dL (<150)
== END 2024-12-24 08:08 | disposition home or self-care (01) ==
LOC: HO.HMGCLDS 08:07
PROVIDERS: PCP Nurse Practitioner Family; Visit Provider Nurse Practitioner Family
DX: Z00.00 Encounter for general adult medical examination without abnormal findings (principal)
CPT/HCPCS: 36415; 80053; 80061; 81003; 84443; 85025